=== PATIENT | male | born 1970 | race Caucasian/White ===

== ENCOUNTER 2018-02-28 15:48 | Emergency (ER) | payer SELFPAY, OTHER ==
[2018-02-28 18:02] LABS: BASO % 0.7 % (0.0-1.0); EOS # 0.1 10^3/uL (0.0-0.50); EOS % 2.9 % (0.0-3.0); HEMATOCRIT 39.4 % (42.0-52.0); HEMOGLOBIN 13.4 g/dl (13.5-17.5); IMMATURE GRANULOCYTE % 0.2 % (0-3.0); LYMPH # 0.8 10^3/uL (1.5-4.5); LYMPH % 19.6 % (24.0-44.0); MEAN CORPUSCULAR HEMOGLOBIN 31.1 pg (27.0-33.0); MEAN CORPUSCULAR VOLUME 91.4 fl (80.0-96.0); MONO # 0.5 10^3/uL (0.0-0.8); MONO % 11.9 % (0.0-5.0); NEUTROPHILS # 2.7 10^3/uL (1.8-7.7); NEUTROPHILS % 64.7 % (36.0-66.0); PLATELET COUNT, AUTOMATED 168 10^3/uL (150-450); RED BLOOD COUNT 4.31 10^6/uL (4.30-6.10); RED CELL DISTRIBUTION WIDTH 13.1 % (11.5-14.5); WHITE BLOOD COUNT 4.1 10^3/uL (4.0-10.0)
[2018-02-28 18:31] LABS: ANION GAP 6 MEQ/L (8-16); BLOOD UREA NITROGEN 23 MG/DL (7-18); CALCIUM LEVEL 8.2 MG/DL (8.5-10.1); CARBON DIOXIDE LEVEL 27 MEQ/L (21-32); CHLORIDE LEVEL 108 MEQ/L (98-107); CK-MB VALUE MASS < 1.0 NG/ML (<3.6); CPK CREATINE PHOSPHOKINASE 89 U/L (39-308); CREATININE FOR GFR 0.82 MG/DL (0.70-1.30); GLOMERULAR FILTRATION RATE > 60.0 (>60); GLUCOSE, FASTING 92 MG/DL (70-100); MB/CK RELATIVE INDEX 1.12 (< OR =4); SODIUM LEVEL 141 MEQ/L (136-145); TROPONIN I < 0.02 NG/ML (< 0.10)
[2018-02-28] MEDS ORDERED: ISOVUE-370 76% 100ML VIAL (Q9967) As Ordered (19:06)
[2018-02-28] MEDS: ALBUTEROL 90 MCG/ACT 8GM HFA INHALER INH (20:53)
[2018-02-28] MEDS: methylPREDNISolone INJ 40 MG/1 ML VIAL (J2920) IV (20:55)
[2018-02-28] MEDS: BENZONATATE 100 MG CAP PO (20:55)
== END 2018-02-28 21:50 | disposition home or self-care (01) ==
LOC: M ED 15:48
DX: J40 Bronchitis, not specified as acute or chronic (principal); R91.8 Other nonspecific abnormal finding of lung field; F17.210 Nicotine dependence, cigarettes, uncomplicated
CPT/HCPCS: Q9967

== ENCOUNTER → 2019-10-19 | Outpatient (REF) | payer OTHER ==
[~2019-10-19] MED LIST: PRED20TA PO; TESS100C PO
[2019-10-19 20:09] LABS: INFLUENZA A AMPLIFICATION POSITIVE (NEGATIVE); INFLUENZA B AMPLIFICATION NEGATIVE (NEGATIVE)
== END ==
LOC: M LAB REF 10:31
PROVIDERS: ATTEND Physician Assistant Medical
DX: R50.9 Fever, unspecified (principal); R05 Cough

== ENCOUNTER → 2021-07-07 | Outpatient (CLI) | payer OTHER ==
--- NOTE | 2021-07-07 12:02 | REP ---
INDICATION: HTN. COMPARISON: 02/28/2018 TECHNIQUE: PA and lateral FINDINGS: The superior mediastinal structures are midline. The cardiac silhouette is unremarkable in size, shape, and position. The diaphragmatic surfaces of the lungs are regular, and the costophrenic angles are clear. The pulmonary guadarrama are clear. The imaged osseous structures are intact. IMPRESSION: There is no acute cardiopulmonary disease. <Electronically signed by Keaton Bonilla > 07/07/21 [id number]
[2021-07-07 12:51] LABS: HEMATOCRIT 49.3 % (42.0-52.0); HEMOGLOBIN 16.7 g/dl (13.5-17.5); MEAN CORPUSCULAR HEMOGLOBIN 31.1 pg (27.0-33.0); MEAN CORPUSCULAR HGB CONC 33.9 g/dl (32.0-36.5); MEAN CORPUSCULAR VOLUME 91.8 fl (80.0-96.0); PLATELET COUNT, AUTOMATED 275 10^3/uL (150-450); RED BLOOD COUNT 5.37 10^6/uL (4.30-6.10); WHITE BLOOD COUNT 3.9 10^3/uL (4.0-10.0)
[2021-07-07 13:22] LABS: ALBUMIN 4.5 GM/DL (3.2-5.2); ALT/SGPT 33 U/L (12-78); BLOOD UREA NITROGEN 11 MG/DL (7-18); CALCIUM LEVEL 9.5 MG/DL (8.5-10.1); CARBON DIOXIDE LEVEL 29 MEQ/L (21-32); CHLORIDE LEVEL 108 MEQ/L (98-107); CHOLESTEROL LEVEL 265 MG/DL (<200); CHOLESTEROL RISK RATIO 7.361 (<5); CREATININE FOR GFR 0.77 MG/DL (0.70-1.30); GLOMERULAR FILTRATION RATE > 60.0 (>60); GLUCOSE, FASTING 95 MG/DL (70-100); HDL CHOLESTEROL 36 MG/DL (>40); LDL CHOLESTEROL 180 MG/DL (<100); NON-HDL-C 229 MG/DL; POTASSIUM SERUM 4.3 MEQ/L (3.5-5.1); PROSTATIC SPECIFIC AG MONITOR 0.82 NG/ML (< 4.00); SODIUM LEVEL 140 MEQ/L (136-145); THYROID STIMULATING HORMONE 0.828 uIU/ML (0.358-3.740); TOTAL PROTEIN 7.9 GM/DL (6.4-8.2); TRIGLYCERIDES LEVEL 244 MG/DL (<150)
[2021-07-07 13:23] LABS: TESTOSTERONE 378 NG/DL (241-827)
--- NOTE | 2021-07-07 22:17 | ECGEPIP ---
[facility] Test Date: 2021-07-07 Pat Name: ZIYAD KEATING Department: Room: - Gender: Male [employer]: samantha : 1970 Requested By: Adelia Bacon Order Number: [id number] Reading MD: Tre Hebert Measurements Intervals [place] Rate: 82 P: 64 WI: 172 QRS: 55 QRSD: 94 T: 55 QT: 356 QTc: 415 Interpretive Statements Normal sinus rhythm with sinus arrhythmia Non-specifc STT abnormalities Similar to 02/28/2018 Electronically Signed on 07-07-2021 22:17:42 EDT by Tre Hebert
== END ==
LOC: M RAD 11:36
PROVIDERS: ATTEND Family Medicine
DX: I10 Essential (primary) hypertension (principal)

== ENCOUNTER → 2022-12-07 | Outpatient (CLI) | payer OTHER ==
[2022-12-07 10:39] LABS: HEMATOCRIT 46.3 % (42.0-52.0); HEMOGLOBIN 15.1 g/dl (13.5-17.5); MEAN CORPUSCULAR HEMOGLOBIN 30.6 pg (27.0-33.0); MEAN CORPUSCULAR HGB CONC 32.6 g/dl (32.0-36.5); MEAN CORPUSCULAR VOLUME 93.9 fl (80.0-96.0); PLATELET COUNT, AUTOMATED 237 10^3/uL (150-450); RED BLOOD COUNT 4.93 10^6/uL (4.30-6.10); WHITE BLOOD COUNT 4.1 10^3/uL (4.0-10.0)
[2022-12-07 10:54] LABS: INR 0.9; PROTHROMBIN TIME 12.3 SECONDS (12.5-14.5)
[2022-12-07 11:02] LABS: ALBUMIN 4.1 G/DL (3.2-5.2); ALKALINE PHOSPHATASE 62 U/L (46-116); ALT/SGPT 15 U/L (7.0-40); AST/SGOT 10 U/L (<34); BLOOD UREA NITROGEN 14 MG/DL (9-23); CALCIUM LEVEL 8.9 MG/DL (8.5-10.1); CARBON DIOXIDE LEVEL 28 MMOL/L (20-31); CHLORIDE LEVEL 106 MMOL/L (98-107); CHOLESTEROL LEVEL 192 MG/DL (<200); CHOLESTEROL RISK RATIO 4.92 (<5); CREATININE FOR GFR 0.67 MG/DL (0.70-1.30); GLOMERULAR FILTRATION RATE > 60.0 (>60); GLUCOSE, FASTING 98 MG/DL (60-100); LDL CHOLESTEROL 133.8 MG/DL (<100); POTASSIUM SERUM 4.1 MMOL/L (3.5-5.1); PROSTATIC SPECIFIC AG MONITOR 0.64 NG/ML (< 4.00); SODIUM LEVEL 140 MMOL/L (136-145); TOTAL PROTEIN 6.9 G/DL (5.7-8.2); TRIGLYCERIDES LEVEL 96 MG/DL (<150)
[2022-12-07 11:06] LABS: TESTOSTERONE 810 NG/DL (241-827); THYROID STIMULATING HORMONE 1.326 uIU/ML (0.55-4.78)
[2022-12-07 11:15] LABS: HEMOGLOBIN A1c 5.2 % (4.0-6.0)
== END ==
LOC: M RAD 09:16
PROVIDERS: ATTEND Family Medicine
DX: Z01.818 Encounter for other preprocedural examination (principal); I10 Essential (primary) hypertension; J44.9 Chronic obstructive pulmonary disease, unspecified

== ENCOUNTER 2022-12-21 08:41 | Day surgery (SDC) | payer OTHER ==
[~2022-12-21] VITALS: Ht 175.3 cm; Wt 72.1 kg
[~2022-12-21 08:41] MED LIST changes: +BSS IRRIG/VANCO(10MG)/TOBRA(5MG)/EPINEPH(1:1000-0.5CC)500ML BAG-ORONLY IR ONE; +CEFUROXIME 1MG/0.1ML INTRACAMERAL INJ As Ordered ONE; +CYCLOPENTOLATE 1% OPHTH SOLN 2ML BTL OS SCH; +LIDOCAINE 1% SDV 5ML VIAL As Ordered ONE; +LIDOCAINE 3.5 % 1ML OPHTH TOPICAL GEL OU ONE; +LISI5TAB11 PO; +OFLOXACIN 0.3 % (OCUFLOX) OPTH SOL 5ML OS ONE; +OMEP-173 PO; +PHENYLEPHRINE 10% OPHTH SOL 5ML OS PRN; +PHENYLEPHRINE 2.5% OPHTH SOL 2ML OS SCH; +SIMV20TA22 PO; +TROPICAMIDE 1% OPHTH SOLN 15ML OS SCH
[2022-12-21] MEDS ORDERED: fentaNYL 100 MCG/2 ML INJECTION As Ordered ONE (09:55)
[2022-12-21] MEDS ORDERED: MIDAZOLAM INJ 2MG/2ML VIAL As Ordered ONE (09:55)
[2022-12-21 11:15] VITALS: BP 122/81
== END 2022-12-21 11:33 | disposition home or self-care (01) ==
LOC: M SDC 08:41
PROVIDERS: ATTEND Ophthalmology
DX: H25.12 Age-related nuclear cataract, left eye (principal); H57.03 Miosis; I10 Essential (primary) hypertension; E03.9 Hypothyroidism, unspecified; F17.210 Nicotine dependence, cigarettes, uncomplicated; Z79.899 Other long term (current) drug therapy
CPT/HCPCS: 66982; 92015; J0697; J2250; J3010; V2632

== ENCOUNTER 2023-03-18 09:26 | Emergency (ER) | payer OTHER ==
[~2023-03-18] VITALS: Ht 175.3 cm; Wt 61.0 kg
[2023-03-18 09:26] VITALS: BP 111/68; TEMP 98; O2SAT 98
[~2023-03-18 09:26] MED LIST changes: -BSS IRRIG/VANCO(10MG)/TOBRA(5MG)/EPINEPH(1:1000-0.5CC)500ML BAG-ORONLY IR ONE; -CEFUROXIME 1MG/0.1ML INTRACAMERAL INJ As Ordered ONE; -CYCLOPENTOLATE 1% OPHTH SOLN 2ML BTL OS SCH; -LIDOCAINE 1% SDV 5ML VIAL As Ordered ONE; -LIDOCAINE 3.5 % 1ML OPHTH TOPICAL GEL OU ONE; -OFLOXACIN 0.3 % (OCUFLOX) OPTH SOL 5ML OS ONE; -PHENYLEPHRINE 10% OPHTH SOL 5ML OS PRN; -PHENYLEPHRINE 2.5% OPHTH SOL 2ML OS SCH; -TROPICAMIDE 1% OPHTH SOLN 15ML OS SCH
== END 2023-03-18 11:00 | disposition left against medical advice (07) ==
LOC: M ED 09:26
DX: K62.5 Hemorrhage of anus and rectum (principal); Z53.21 Procedure and treatment not carried out due to patient leaving prior to being seen by health care provider

== ENCOUNTER → 2025-03-05 | Outpatient (CLI) | payer BC ==
[~2025-03-05] MED LIST changes: +HOLTER MONITOR XX; +IBUP200C25 PO; +ISOVUE-370 76% 100 ML VIAL As Ordered ONE
== END ==
LOC: M RAD 10:11
PROVIDERS: ATTEND Family Medicine
DX: R22.1 Localized swelling, mass and lump, neck (principal); K14.8 Other diseases of tongue
CPT/HCPCS: 70491; Q9967

== ENCOUNTER 2025-03-12 10:51 | Emergency (ER) | payer BC ==
[~2025-03-12 10:51] MED LIST changes: -HOLTER MONITOR XX; -IBUP200C25 PO
[2025-03-12 10:54] VITALS: TEMP 97.1
[2025-03-12 11:32] LABS: BASO # 0.0 10^3/uL (0.0-0.2); BASO % 0.3 % (0.0-1.0); EOS # 0.1 10^3/uL (0.0-0.5); EOS % 1.9 % (0.0-3.0); LYMPH # 0.8 10^3/uL (1.5-5.0); LYMPH % 21.4 % (24.0-44.0); MONO # 0.3 10^3/uL (0.0-0.8); MONO % 7.8 % (2.0-8.0); NEUTROPHILS # 2.5 10^3/uL (1.5-8.5); NEUTROPHILS % 68.3 % (36.0-66.0); PLATELET COUNT, AUTOMATED 233 10^3/uL (150-450)
[2025-03-12] MEDS ORDERED: IBUP200C25 PO (11:53)
[2025-03-12] MEDS ORDERED: HOME MED LIST COMPLETE! XX SCH (11:55)
[2025-03-12 11:58] LABS: CALCIUM LEVEL 8.9 MG/DL (8.5-10.1); CARBON DIOXIDE LEVEL 27 MMOL/L (20-31); CHLORIDE LEVEL 105 MMOL/L (98-107); CK-MB VALUE MASS < 1.0 NG/ML (<3.6); CPK CREATINE PHOSPHOKINASE 59 U/L (46-171); CREATININE FOR GFR 0.94 MG/DL (0.70-1.30); GLOMERULAR FILTRATION RATE > 90.0 (>56); MAGNESIUM LEVEL 2.0 MG/DL (1.8-2.4); POTASSIUM SERUM 3.9 MMOL/L (3.5-5.1); SODIUM LEVEL 142 MMOL/L (136-145)
[2025-03-12 12:01] LABS: FREE T4 1.33 NG/DL (0.89-1.76)
[2025-03-12] MEDS ORDERED: HOLTER MONITOR XX (12:29)
[2025-03-12 12:30] VITALS: BP 121/88; O2SAT 97
== END 2025-03-12 12:37 | disposition home or self-care (01) ==
LOC: M ED 10:51 → EDBD 10:51 → M ED 12:37
DX: R55 Syncope and collapse (principal); T46.4X5A Adverse effect of angiotensin-converting-enzyme inhibitors, initial encounter; R00.1 Bradycardia, unspecified; Z79.1 Long term (current) use of non-steroidal anti-inflammatories (NSAID); Z79.899 Other long term (current) drug therapy
CPT/HCPCS: 10021; 36415; 71045; 80048; 82550; 82553; 83735; 84439; 84443; 84484; 85025; 88173; 93005; 93041; 94760; 99285; G0463

== ENCOUNTER → 2025-03-12 | Outpatient (CLI) | payer BC ==
[~2025-03-12] MED LIST changes: -ISOVUE-370 76% 100 ML VIAL As Ordered ONE
== END ==
LOC: M EKG 12:43
PROVIDERS: ATTEND Emergency Medicine
DX: R55 Syncope and collapse (principal)

== ENCOUNTER → 2025-03-12 | Outpatient (REF) | payer BC | LOC: M LAB REF 18:15 | PROVIDERS: ATTEND Otolaryngology | DX: R59.0 Localized enlarged lymph nodes (principal) ==

== ENCOUNTER 2025-03-20 11:58 | Day surgery (SDC) | payer BC ==
[~2025-03-20] VITALS: Ht 175.3 cm; Wt 74.4 kg
[~2025-03-20 11:58] MED LIST changes: +HOLTER MONITOR XX; +IBUP200C25 PO
[2025-03-20] MEDS ORDERED: LR 1,000 ML IV SCH (12:15)
[2025-03-20] MEDS ORDERED: ONDANSETRON 4MG 2ML VIAL As Ordered ONE (13:33)
[2025-03-20] MEDS ORDERED: MIDAZOLAM INJ 2 MG/2 ML VIAL As Ordered ONE (13:33)
[2025-03-20] MEDS ORDERED: dexAMETHasone 4 MG/ML 1 ML VIAL As Ordered ONE (13:34)
[2025-03-20] MEDS ORDERED: SUGAMMADEX SODIUM 500 MG/5 ML VIAL As Ordered ONE (13:34)
[2025-03-20] MEDS ORDERED: LIDOCAINE 2% 100 MG/5 ML SDV (FOR ANES.) As Ordered ONE (13:34)
[2025-03-20] MEDS ORDERED: ROCURONIUM BROMIDE 50MG/5ML VIAL As Ordered ONE (13:35)
[2025-03-20] MEDS ORDERED: ACETAMINOPHEN 1000MG/100ML IV BAG As Ordered ONE (13:42)
[2025-03-20] MEDS: LIDOCAINE W/EPINEPHrine 1% 20 ML VIAL As Ordered ONE (15:45)
[2025-03-20] MEDS: OXYMETAZOLINE 0.05% NASAL SPRAY As Ordered ONE (16:31)
[2025-03-20] MEDS: METHYLENE BLUE 0.5% (5 MG/ML) 10 ML AMP As Ordered ONE (16:31)
[2025-03-20] MEDS ORDERED: MORPHINE 2 MG/ML 1 ML VIAL IV PRN (17:00)
[2025-03-20] MEDS ORDERED: HYDROMORPHONE HCL 0.5 MG/0.5 ML SYRINGE IV PRN (17:00)
[2025-03-20 17:40] VITALS: BP 160/89; TEMP 97.5; O2SAT 97
== END 2025-03-20 18:01 | disposition home or self-care (01) ==
LOC: M SDC 11:58
PROVIDERS: ATTEND Otolaryngology
DX: C01 Malignant neoplasm of base of tongue (principal); C77.0 Secondary and unspecified malignant neoplasm of lymph nodes of head, face and neck; C34.90 Malignant neoplasm of unspecified part of unspecified bronchus or lung; I10 Essential (primary) hypertension; E78.00 Pure hypercholesterolemia, unspecified; Z79.899 Other long term (current) drug therapy; K21.9 Gastro-esophageal reflux disease without esophagitis; Z87.891 Personal history of nicotine dependence
CPT/HCPCS: 10021; 31536; 88173; 88305; 88313; J0131; J1100; J2250; J2405; J3010; Q9968

== ENCOUNTER → 2025-04-14 | Outpatient (CLI) | payer BC | LOC: M PLARAD 10:29 | PROVIDERS: ATTEND Physician Assistant Medical | DX: C01 Malignant neoplasm of base of tongue (principal) | CPT/HCPCS: 78815; A9552 ==

== ENCOUNTER → 2025-04-17 | Outpatient (CLI) | payer BC | LOC: M ONCR 08:46 | PROVIDERS: ATTEND General Practice | DX: C01 Malignant neoplasm of base of tongue (principal); Z79.899 Other long term (current) drug therapy; Z87.891 Personal history of nicotine dependence | CPT/HCPCS: 31575; G0463 ==

== ENCOUNTER → 2025-05-30 | Outpatient (CLI) | payer BC ==
[~2025-05-30] VITALS: Ht 177.8 cm; Wt 74.0 kg
[2025-05-30 14:10] VITALS: TEMP 98.9
[2025-05-30] MEDS: ceFAZolin SODIUM 2 GM in DEXTROSE 5% (D5W) ADV/MINI-BAG 50 ML IV ONE (14:50)
[2025-05-30] MEDS: NS (Normal Saline) 0.9% 1,000 ML IV SCH (14:50)
[2025-05-30] MEDS: MIDAZOLAM INJ 2 MG/2 ML VIAL IV PRN (15:24)
[2025-05-30] MEDS: LIDOCAINE 1% MDV 20 ML VIAL SC SCH (15:30)
[2025-05-30 15:56] VITALS: BP 125/87; O2SAT 97
== END ==
LOC: M IRPRO 13:54
PROVIDERS: ATTEND Internal Medicine Medical Oncology
DX: C02.9 Malignant neoplasm of tongue, unspecified (principal)
CPT/HCPCS: 36561; 99152; 99153; J0688; J1642; J2250; J3010

== ENCOUNTER 2025-06-02 08:08 | Outpatient (RCR) | payer BC | END 2025-06-03 | LOC: M ONCR 08:08 | PROVIDERS: ATTEND General Practice | DX: Z51.0 Encounter for antineoplastic radiation therapy (principal); C01 Malignant neoplasm of base of tongue ==

== ENCOUNTER → 2025-06-09 | Outpatient (POV) | payer BC ==
[~2025-06-09] VITALS: Ht 177.8 cm; Wt 72.7 kg
[~2025-06-09] MED LIST changes: +LIDO30CR18 TOP; +ONDA-84 PO; +PROC10TA5 PO
[2025-06-09 08:50] VITALS: BP 132/82; O2SAT 100
== END ==
LOC: M IRPOV 08:40
PROVIDERS: ATTEND Registered Nurse School
DX: Z45.2 Encounter for adjustment and management of vascular access device (principal); C02.9 Malignant neoplasm of tongue, unspecified; Z88.8 Allergy status to other drugs, medicaments and biological substances

== ENCOUNTER → 2025-07-04 | Outpatient (RCR) | payer BC ==
[~2025-07-04] MED LIST changes: +BIOTLIQ9 MT; +DEXA4TA PO; +LIDO15SO8 PO
== END ==
LOC: M ONCR 06-04 10:04
PROVIDERS: ATTEND General Practice
DX: Z51.0 Encounter for antineoplastic radiation therapy (principal); C01 Malignant neoplasm of base of tongue

== ENCOUNTER 2025-07-28 13:39 | Outpatient (RCR) | payer BC ==
[~2025-07-28 13:39] MED LIST changes: +FLUC100T3 PO; +OXYC1SOL3 PO
[2025-07-29] MEDS ORDERED: DEXA1TA PO (13:12)
[2025-07-29] MEDS ORDERED: DEXA2TA PO (13:12)
[2025-08-04] MEDS ORDERED: AMOX875T2 PO (08:23)
[2025-08-04] MEDS ORDERED: PERC5TAB12 PO (08:28)
[2025-08-04] MEDS ORDERED: LIDO15SO9 SS (08:31)
[2025-08-04] MEDS ORDERED: SENO8.6T10 PO (08:32)
[2025-08-04] MEDS ORDERED: MILKSUS3 PO (08:32)
[2025-08-04] MEDS ORDERED: JEVILIQ12 PO (12:22)
[2025-08-04] MEDS ORDERED: MELO15TA28 PO (18:03)
== END 2025-08-03 ==
LOC: M ONCR 13:39
PROVIDERS: ATTEND General Practice
DX: Z51.0 Encounter for antineoplastic radiation therapy (principal); C01 Malignant neoplasm of base of tongue

== ENCOUNTER 2025-07-31 10:59 | Inpatient (IN) | payer BC ==
[~2025-07-31] VITALS: Ht 175.3 cm; Wt 60.5 kg
[~2025-07-31 10:59] MED LIST changes: +DEXA1TA PO; +DEXA2TA PO
[2025-07-31] MEDS: NS (Normal Saline) 0.9% 1,000 ML IV ONE (11:25)
[2025-07-31] MEDS ORDERED: MED REC CURRENTLY UNOBTAINABLE XX SCH (11:35)
[2025-07-31] MEDS ORDERED: HOME MED LIST COMPLETE! XX SCH (11:35)
[2025-07-31 12:03] LABS: BASO # 0.0 10^3/uL (0.0-0.2); BASO % 1.1 % (0.0-1.0); EOS # 0.0 10^3/uL (0.0-0.5); EOS % 0.0 % (0.0-3.0); LYMPH # 0.3 10^3/uL (1.5-5.0); LYMPH % 11.9 % (24.0-44.0); MONO # 0.5 10^3/uL (0.0-0.8); MONO % 20.3 % (2.0-8.0); NEUTROPHILS # 1.5 10^3/uL (1.5-8.5); NEUTROPHILS % 57.5 % (36.0-66.0); PLATELET COUNT, AUTOMATED 314 10^3/uL (150-450)
[2025-07-31 12:22] LABS: ALT/SGPT 21 U/L (7.0-40); AST/SGOT 20 U/L (<34); CALCIUM LEVEL 8.9 MG/DL (8.5-10.1); CARBON DIOXIDE LEVEL 29 MMOL/L (20-31); CHLORIDE LEVEL 99 MMOL/L (98-107); CREATININE FOR GFR 0.90 MG/DL (0.70-1.30); GLOMERULAR FILTRATION RATE > 90.0 (>56); MAGNESIUM LEVEL 1.4 MG/DL (1.8-2.4); POTASSIUM SERUM 3.8 MMOL/L (3.5-5.1); SODIUM LEVEL 140 MMOL/L (136-145)
[2025-07-31] MEDS: MORPHINE 4 MG/ML 1 ML VIAL IV PRN (12:25)
[2025-07-31] MEDS ORDERED: MORPHINE 4 MG/ML 1 ML VIAL IV PRN (12:40)
[2025-07-31] MEDS: MAG SULF 1GM/100ML (MAG RUN) 1 GM in IV 1 EA IV ONE (13:09)
[2025-07-31] MEDS: D5W/0.45% SODIUM CHLORIDE 1,000 ML IV ONE (13:09)
[2025-07-31] MEDS: D5W/0.45% SODIUM CHLORIDE 1,000 ML IV SCH (13:13)
[2025-07-31] MEDS ORDERED: ONDANSETRON 4MG TAB PO PRN (13:40)
[2025-07-31] MEDS ORDERED: diphenhydrAMINE 50 MG/ML VIAL IV PRN (13:40)
[2025-07-31] MEDS ORDERED: NALOXONE INJ 0.4 MG/1 ML VIAL IV PRN (13:40)
[2025-07-31] MEDS ORDERED: LIDOCAINE/PRILOCAINE CREAM 5 GM TUBE TOP PRN (13:40)
[2025-07-31] MEDS ORDERED: EPIDURAL/PCA KEYS XX PRN (13:40)
[2025-07-31] MEDS ORDERED: PROCHLORPERAZINE 5MG TAB PO PRN (13:40)
[2025-07-31 13:46] VITALS: BP 125/75; TEMP 99.2; O2SAT 98
[2025-07-31] MEDS: SALIVA SUBSTITUTE BTL MT SCH (14:06)
[2025-07-31] MEDS: MAGIC MOUTHWASH 5 ML ORAL SYRINGE SSP SCH (14:06)
[2025-07-31] MEDS ORDERED: PILL CUTTER 1 EACH XX PRN (15:15)
[2025-07-31] MEDS: MORPHINE SULF IN 0.9% NACL 100 MG in IV 1 EA IV SCH (15:24)
[2025-07-31] MEDS ORDERED: ACETAMINOPHEN 500 MG TAB PO ONE (16:00)
[2025-07-31] MEDS: NS (Normal Saline) 0.9% 1,000 ML IV SCH (16:06)
[2025-07-31 16:10] VITALS: BP 122/79; TEMP 101.1; O2SAT 98
[2025-07-31] MEDS: ACETAMINOPHEN *IV* 1,000 MG in IV 1 EA IV ONE (16:34)
[2025-07-31 17:27] VITALS: TEMP 98.4
[2025-07-31 20:06] VITALS: BP_SYST 100; BP_SYST 90; BP_DIAS 53; BP_DIAS 68; TEMP 98.5; O2SAT 96
[2025-07-31 23:47] VITALS: BP 110/70; TEMP 101; O2SAT 96
[2025-07-31] MEDS: ACETAMINOPHEN 325 MG TAB PO PRN (23:56)
[2025-08-01] MEDS: D5W/0.45% SODIUM CHLORIDE 1,000 ML IV SCH
[2025-08-01 03:55] VITALS: TEMP 99
[2025-08-01 04:10] VITALS: BP 108/70; O2SAT 96
[2025-08-01 06:16] LABS: INR 1.1
[2025-08-01 07:31] VITALS: BP 141/71; TEMP 99.3; O2SAT 98
[2025-08-01 09:38] LABS: PLATELET COUNT, AUTOMATED 249 10^3/uL (150-450)
[2025-08-01] MEDS: KETOROLAC 30 MG/ML 1 ML VIAL IV ONE (09:57)
[2025-08-01 10:10] LABS: C REACTIVE PROTEIN QUANTITATIV 5.46 MG/DL (<1.0)
[2025-08-01 10:23] LABS: ALT/SGPT 18 U/L (7.0-40); AST/SGOT 17 U/L (<34); CALCIUM LEVEL 7.9 MG/DL (8.5-10.1); CARBON DIOXIDE LEVEL 30 MMOL/L (20-31); CHLORIDE LEVEL 98 MMOL/L (98-107); CREATININE FOR GFR 0.59 MG/DL (0.70-1.30); GLOMERULAR FILTRATION RATE > 90.0 (>56); POTASSIUM SERUM 3.3 MMOL/L (3.5-5.1); SODIUM LEVEL 137 MMOL/L (136-145)
[2025-08-01 10:39] LABS: ATYPICAL LYMPH 1 % (0-5); LYMPHOCYTES 9 % (16-44); METAMYELOCYTES 4 % (0-0); MONOCYTES 11 % (0-5); MYELOCYTES 1 % (0-0); NEUTROPHILS 71 % (28-66)
[2025-08-01 10:40] LABS: PLATELET ESTIMATE NORMAL (NORMAL)
[2025-08-01 11:31] VITALS: BP 118/72; TEMP 99.5; O2SAT 96
[2025-08-01] MEDS ORDERED: ISOVUE-370 76% 100 ML VIAL As Ordered ONE (11:50)
[2025-08-01] MEDS: POTASSIUM CHLORIDE 10% LIQ 20MEQ/15ML UDC PO ONE (13:06)
[2025-08-01] MEDS ORDERED: VANCOMYCIN HCL 1,000 MG in IV FLUID PLACE HOLDER 1 EA IV SCH (15:00)
[2025-08-01 15:59] VITALS: BP 110/75; TEMP 98.2; O2SAT 97
[2025-08-01] MEDS: PIPERACILLIN/TAZOBACTAM SOD 4.5 GM in DEXTROSE 5% (D5W) ADV/MINI-BAG 50 ML IV SCH (16:26)
[2025-08-01 16:59] LABS: KETONE, URINE AUTO RFX NEGATIVE (NEGATIVE); LEUKOCYTE ESTERASE UR AUTO RFX NEGATIVE (NEGATIVE); NITRITE, URINE AUTO RFX NEGATIVE (NEGATIVE); RBC, URINE AUTO RFX 0 /HPF (0-3); SQUAM EPITHELIAL CELL UR AURFX 0 /HPF (0-6); WBC, URINE AUTO RFX 1 /HPF (0-3)
[2025-08-01] MEDS: KETOROLAC 30 MG/ML 1 ML VIAL IV PRN (17:38)
[2025-08-01] MEDS: VANCOMYCIN HCL 1,000 MG, VIAL MATE ADAPTER 1 EACH in NS 250 ML IV ONE (17:39)
[2025-08-01 20:18] VITALS: BP 101/58; TEMP 98.7; O2SAT 95
[2025-08-01] MEDS: VANCOMYCIN HCL 750 MG, VIAL MATE ADAPTER 1 EACH in NS 250 ML IV SCH (21:24)
[2025-08-01] MEDS: PANTOPRAZOLE 40MG VIAL IV SCH (22:16)
[2025-08-02] VITALS (7 sets, daily range): BP systolic 94–129; BP diastolic 50–93; TEMP 97.3–98.3; O2SAT 98–99
[2025-08-02] MEDS ORDERED: LIDOCAINE 2% 100 MG/5 ML SDV (FOR ANES.) As Ordered ONE (08:54)
[2025-08-02] MEDS ORDERED: MORPHINE 4 MG/ML 1 ML VIAL IV PRN (10:10)
[2025-08-02] MEDS ORDERED: LIDOCAINE VISCOUS 2% SOLN 15 ML UDC SS PRN ×2 (10:30→12:00)
[2025-08-02] MEDS: LIDOCAINE VISCOUS 2% SOLN 15 ML UDC SS PRN (10:49)
[2025-08-02] MEDS: LIDOCAINE VISCOUS 2% SOLN 15 ML UDC SS SCH (13:00)
[2025-08-03] MEDS: MAGIC MOUTHWASH 5 ML ORAL SYRINGE SSP PRN (01:34)
[2025-08-03 03:58] VITALS: BP 110/68; TEMP 98.7; O2SAT 95
[2025-08-03 08:22] VITALS: BP 100/60; TEMP 98.5; O2SAT 95
[2025-08-03 08:29] LABS: BASO # 0.0 10^3/uL (0.0-0.2); BASO % 0.9 % (0.0-1.0); EOS # 0.0 10^3/uL (0.0-0.5); EOS % 0.5 % (0.0-3.0); LYMPH # 0.3 10^3/uL (1.5-5.0); LYMPH % 15.3 % (24.0-44.0); MONO # 0.4 10^3/uL (0.0-0.8); MONO % 18.1 % (2.0-8.0); NEUTROPHILS # 1.2 10^3/uL (1.5-8.5); NEUTROPHILS % 56.4 % (36.0-66.0); PLATELET COUNT, AUTOMATED 218 10^3/uL (150-450)
[2025-08-03 08:51] LABS: C REACTIVE PROTEIN QUANTITATIV 1.81 MG/DL (<1.0); MAGNESIUM LEVEL 1.3 MG/DL (1.8-2.4); PHOSPHORUS LEVEL 1.8 MG/DL (2.5-4.9)
[2025-08-03 09:03] LABS: CALCIUM LEVEL 7.8 MG/DL (8.5-10.1); CARBON DIOXIDE LEVEL 27 MMOL/L (20-31); CHLORIDE LEVEL 105 MMOL/L (98-107); CREATININE FOR GFR 0.77 MG/DL (0.70-1.30); GLOMERULAR FILTRATION RATE > 90.0 (>56); POTASSIUM SERUM 3.5 MMOL/L (3.5-5.1); SODIUM LEVEL 141 MMOL/L (136-145)
[2025-08-03] MEDS: AUGMENTIN 875 MG TAB PO SCH (09:31)
[2025-08-03 13:48] VITALS: BP 111/68; TEMP 98.4; O2SAT 97
[2025-08-03 16:46] VITALS: BP 110/77; TEMP 98.3; O2SAT 96
[2025-08-03 19:52] VITALS: BP 109/63; TEMP 97.4; O2SAT 100
[2025-08-04 03:53] VITALS: BP 104/67; TEMP 97.9; O2SAT 96
[2025-08-04 07:44] VITALS: BP 104/70; TEMP 97.8; O2SAT 98
[2025-08-04 07:51] LABS: BASO # 0.0 10^3/uL (0.0-0.2); BASO % 1.2 % (0.0-1.0); EOS # 0.0 10^3/uL (0.0-0.5); EOS % 0.0 % (0.0-3.0); LYMPH # 0.4 10^3/uL (1.5-5.0); LYMPH % 12.1 % (24.0-44.0); MONO # 0.5 10^3/uL (0.0-0.8); MONO % 15.1 % (2.0-8.0); NEUTROPHILS # 2.1 10^3/uL (1.5-8.5); NEUTROPHILS % 62.8 % (36.0-66.0); PLATELET COUNT, AUTOMATED 256 10^3/uL (150-450)
[2025-08-04 08:09] LABS: ALT/SGPT 17 U/L (7.0-40); AST/SGOT 20 U/L (<34); CALCIUM LEVEL 8.3 MG/DL (8.5-10.1); CARBON DIOXIDE LEVEL 32 MMOL/L (20-31); CHLORIDE LEVEL 102 MMOL/L (98-107); CREATININE FOR GFR 0.67 MG/DL (0.70-1.30); GLOMERULAR FILTRATION RATE > 90.0 (>56); MAGNESIUM LEVEL 1.2 MG/DL (1.8-2.4); PHOSPHORUS LEVEL 2.2 MG/DL (2.5-4.9); POTASSIUM SERUM 3.9 MMOL/L (3.5-5.1); SODIUM LEVEL 141 MMOL/L (136-145)
[2025-08-04] MEDS ORDERED: AMOX875T2 PO (08:23)
[2025-08-04] MEDS ORDERED: PERCOCET 5MG/325MG TAB PO PRN ×2 (08:25)
[2025-08-04] MEDS ORDERED: PERC5TAB12 PO (08:28)
[2025-08-04] MEDS ORDERED: LIDO15SO9 SS (08:31)
[2025-08-04] MEDS ORDERED: MILKSUS3 PO (08:32)
[2025-08-04] MEDS ORDERED: SENO8.6T10 PO (08:32)
[2025-08-04] MEDS: MAG SULF 1GM/100ML (MAG RUN) 1 GM in IV 1 EA IV SCH (08:34)
[2025-08-04] MEDS: NEUTRA-PHOS 1.5 GM PACKET PEG SCH (08:48)
[2025-08-04] MEDS: MAGNESIUM OXIDE 400 MG TAB PEG SCH (08:57)
[2025-08-04] MEDS ORDERED: JEVILIQ12 PO (12:22)
[2025-08-04] MEDS ORDERED: MELO15TA28 PO (18:03)
[2025-08-06] MEDS ORDERED: AMOX875T2 PO (09:28)
== END 2025-08-04 13:24 | disposition home or self-care (01) | DRG 222 ==
LOC: M ED 10:59 → M ED INP 12:36 → M PCU 13:39
PROVIDERS: ADMIT General Practice; ATTEND General Practice
PROC: 0DH68UZ Insertion of Feeding Device into Stomach, Via Natural or Artificial Opening Endoscopic (ICD-10-PCS; principal; 2025-08-02 08:30)
DX: R13.10 Dysphagia, unspecified (principal); E88.09 Other disorders of plasma-protein metabolism, not elsewhere classified; C01 Malignant neoplasm of base of tongue; E83.42 Hypomagnesemia; E83.39 Other disorders of phosphorus metabolism; K12.33 Oral mucositis (ulcerative) due to radiation; R63.4 Abnormal weight loss; I10 Essential (primary) hypertension; E87.6 Hypokalemia; R50.9 Fever, unspecified; K59.00 Constipation, unspecified; K31.89 Other diseases of stomach and duodenum; R63.39 Other feeding difficulties; R62.7 Adult failure to thrive; Z92.3 Personal history of irradiation; Z79.69 Long term (current) use of other immunomodulators and immunosuppressants; Z87.891 Personal history of nicotine dependence; Z79.899 Other long term (current) drug therapy; Z88.8 Allergy status to other drugs, medicaments and biological substances

== ENCOUNTER → 2025-08-18 | Outpatient (CLI) | payer BC ==
[~2025-08-18] MED LIST changes: +AMOX875T2 PO; +JEVILIQ12 PO; +LIDO15SO9 SS; +MAGN400C2 PO; +MELO15TA28 PO; +MILKSUS3 PO; +NYST-38 PO; +PERC5TAB12 PO; +SENO8.6T10 PO
== END ==
LOC: M ONCR 08:44
PROVIDERS: ATTEND General Practice
DX: Z01.89 Encounter for other specified special examinations (principal)

== ENCOUNTER → 2025-08-25 | Outpatient (CLI) | payer BC | LOC: M WHC 10:42 | DX: C01 Malignant neoplasm of base of tongue (principal) ==